=== PATIENT | female | born 1950 | race Caucasian/White ===

== ENCOUNTER → 2019-06-28 | Outpatient (CLI) | payer MEDICARE ==
--- NOTE | 2019-06-29 11:48 | XR ---
EXAMINATION TYPE: XR chest 2V DATE OF EXAM: 06/28/2019 COMPARISON: 12/28/2015 HISTORY: Cough and shortness of breath TECHNIQUE: Frontal and lateral views of the chest are obtained. FINDINGS: There is new slight right hemidiaphragm elevation in comparison to the prior. There is no f ocal air space opacity, pleural effusion, or pneumothorax seen. The cardiac silhouette size is withi n normal limits. The osseous structures are intact. Cholecystectomy clips are noted. Minimal degene rative changes of the spine. Mild diffuse osseous demineralization. IMPRESSION: New slight right hemidiaphragm elevation could be physiologic or could relate to diaphra gmatic paresis in the appropriate clinical setting. Sniff test could be performed if there is further clinical concern.
== END | disposition home or self-care (01) ==
LOC: RADXRYALE 16:21
PROVIDERS: ATTEND Physician Assistant Medical
DX: J98.6 Disorders of diaphragm (principal); R05 Cough
CPT/HCPCS: 71046

== ENCOUNTER → 2019-12-10 | Outpatient (CLI) | payer MEDICARE ==
[2019-12-10 13:32] LABS: HCT 42.9 % (34.0-46.0); HGB 13.9 gm/dL (11.4-16.0); MCHC 32.5 g/dL (31.0-37.0); MCV 86.2 fL (80.0-100.0); Mean Platelet Volume 8.7; Platelet Count 318 k/uL (150-450); RBC 4.98 m/uL (3.80-5.40); RDW 14.8 % (11.5-15.5)
[2019-12-10 20:10] LABS: African American GFR (CKD) 75.1 (60.0-200.0); Albumin 4.3 g/dL (3.80-4.90); Albumin/Globulin Ratio 1.79 (1.60-3.17); Anion Gap 11.1 mmol/L (4.00-12.00); BUN/Creat Ratio 22.22 Ratio (12.00-20.00); Calcium 9.6 mg/dL (8.7-10.3); Carbon Dioxide 24.9 mmol/L (21.6-31.8); Chol/HDL Ratio 4.67; Globulin 2.4 g/dL (1.6-3.3); LDL Cholesterol,Calculated 145.6 mg/dL (0.0-131.0); Non-African American GFR(CKD) 64.8 (60.0-200.0); Potassium 4.3 mmol/L (3.5-5.5); Total Bilirubin 0.6 mg/dL (0.2-1.2); Total Protein 6.7 g/dL (6.2-8.2); VLDL Calculation 30.4 mg/dL (5.00-40.00)
== END | disposition home or self-care (01) ==
LOC: LABWHC1 12:04
PROVIDERS: ATTEND Physician Assistant Medical
DX: I10 Essential (primary) hypertension (principal); E55.9 Vitamin D deficiency, unspecified; E78.2 Mixed hyperlipidemia; R73.01 Impaired fasting glucose; J44.9 Chronic obstructive pulmonary disease, unspecified
CPT/HCPCS: 36415; 80053; 80061; 82306; 82550; 84443; 85027

== ENCOUNTER 2021-07-16 00:08 | Observation (INO) | payer MEDICARE ==
[2021-07-16 00:16] VITALS: TEMP 99.2
[2021-07-16] MEDS ORDERED: SODIUM CHLORIDE 0.9% 500 ML 500 ML IV STA (00:21)
[2021-07-16] MEDS ORDERED: SODIUM CHLORIDE 0.9% 1,000 ML IV STA (00:21)
--- NOTE | 2021-07-16 00:23 | ED ---
Weakness HPI - General Chief complaint: Weakness Stated complaint: weakness Time Seen by Provider: 07/16/21 00:09 Source: patient, EMS, RN notes reviewed, old records reviewed Mode of arrival: EMS Limitations: no limitations - History of Present Illness Initial comments: This is a 71-year-old female to the emergency department for evaluation of weakness patient states his been feeling sick on and off for 3 months complaining of ear pain and headache. No fevers or travel history or sick contacts no trauma. He states that time she has had some dehydration decreased appetite and may have some dysuria, no recent travel history or sick contacts. Patient states his does not feel well MD Complaint: generalized weakness -: month(s) Location: generalized Severity: moderate Severity scale (1-10): 4 Quality: aching Consistency: constant Improves with: none Worsens with: none Context: recent illness Associated Symptoms: denies other symptoms - Related Data Home Medications Medication Instructions Recorded Confirmed Docusate [Colace] 100 mg PO BID 12/26/15 01/07/16 Azithromycin [Zithromax Z-pack] 250 mg PO DIRECTED 01/07/16 01/07/16 Previous Rx's Medication Instructions Recorded Aspirin EC [Ecotrin] 325 mg PO DAILY 30 Days tablet. 10/31/14 Cyclobenzaprine [Flexeril] 10 mg PO TID PRN 30 Days tab 10/31/14 Metoprolol Tartrate [Lopressor] 25 mg PO BID 30 Days tab 10/31/14 Zolpidem [Ambien] 10 mg PO HS #30 tablet 10/31/14 Albuterol Sulfate [Proventil Hfa] 1 - 2 puff INHALATION Q6HR PRN #1 01/01/16 inhaler Budesonide-Formot 160-4.5 Mcg 2 puff INHALATION RT-BID #1 puff 01/01/16 [Symbicort 160-4.5 Mcg Inhaler] PARoxetine [Paxil] 30 mg PO DAILY tab 01/01/16 predniSONE 10 mg PO DIRECTED #18 tab 01/01/16 Allergies Allergy/AdvReac Type Severity Reaction Status Date / Time bupropion HCl Allergy Unknown Verified 07/16/21 00:27 [From Wellbutrin] codeine Allergy Unknown Verified 07/16/21 00:27 metformin Allergy Unknown Verified 07/16/21 00:27 Review of Systems ROS Statement: Those systems with pertinent positive or pertinent negative responses have been documented in the HPI. ROS Other: All systems not noted in ROS Statement are negative. Past Medical History Past Medical History: Asthma, COPD, Hypertension Additional Past Medical History / Comment(s): Hx TB age 5 History of Any Multi-Drug Resistant Organisms: None Reported Past Surgical History: Cholecystectomy, Hysterectomy, Joint Replacement Additional Past Surgical History / Comment(s): bilateral ears, Bilat knee replacement, dental sx Past Anesthesia/Blood Transfusion Reactions: No Reported Reaction Past Psychological History: Anxiety, Depression Smoking Status: Never smoker Past Alcohol Use History: Occasional Past Drug Use History: None Reported - Past Family History Mother Family Medical History: Cancer Additional Family Medical History / Comment(s): headaches Father Family Medical History: Liver Disease General Exam General appearance: alert, in no apparent distress Head exam: Present: atraumatic, normocephalic, normal inspection Eye exam: Present: normal appearance, PERRL, EOMI. Absent: scleral icterus, conjunctival injection, periorbital swelling ENT exam: Present: normal exam, mucous membranes moist Neck exam: Present: normal inspection. Absent: tenderness, meningismus, lymphadenopathy Respiratory exam: Present: normal lung sounds bilaterally. Absent: respiratory distress, wheezes, rales, rhonchi, stridor Cardiovascular Exam: Present: regular rate, normal rhythm, normal heart sounds. Absent: systolic murmur, diastolic murmur, rubs, gallop, clicks GI/Abdominal exam: Present: soft, normal bowel sounds. Absent: distended, tenderness, guarding, rebound, rigid Extremities exam: Present: normal inspection, full ROM, normal capillary refill. Absent: tenderness, pedal edema, joint swelling, calf tenderness Back exam: Present: normal inspection Neurological exam: Present: alert, oriented X3, CN II-XII intact Psychiatric exam: Present: normal affect, normal mood Skin exam: Present: warm, dry, intact, normal color. Absent: rash Course Vital Signs 07/16/21 00:09 Temperature 99.2 F Pulse Rate 88 Respiratory 20 Rate Blood Pressure 138/81 O2 Sat by Pulse 96 Oximetry - Reevaluation(s) Reevaluation #1: 07/16/21 00:22 Medical records reviewed Reevaluation #2: 07/16/21 02:26 Patient is complaining of persistent ear pain and headache Reevaluation #3: 07/16/21 02:26 Patient is informed of results and questions answered Reevaluation #4: 07/16/21 02:26 Patient currently has adequate pain control - Consultations Consultation #1: Spoke with sound who agrees to admit the patient EKG Findings - EKG Comments: EKG Findings:: EKG shwos nsr 77 NE 164 QRS 84 QTc 420 Medical Decision Making - Medical Decision Making 89 female DF for evaluation patient is safe evaluation of not feeling well w eakness headache. Headache is resolved here in the ER. Patient does have urinary tract infection with elevated white blood cell count, patient will be admitted for hydration and IV antibiotics pain control - Lab Data Result diagrams: 07/16/21 00:34 07/16/21 00:34 Lab Results 07/16/21 07/16/21 07/16/21 Range/Units 00:34 00:34 00:34 WBC 14.8 H (3.8-10.6) k/uL RBC 4.49 (3.80-5.40) m/uL Hgb 12.9 (11.4-16.0) gm/dL Hct 39.9 (34.0-46.0) % MCV 88.9 (80.0-100.0) fL MCH 28.7 (25.0-35.0) pg MCHC 32.3 (31.0-37.0) g/dL RDW 13.1 (11.5-15.5) % Plt Count 356 (150-450) k/uL MPV 8.7 Neutrophils % 74 % Lymphocytes % 15 % Monocytes % 6 % Eosinophils % 3 % Basophils % 0 % Neutrophils # 10.9 H (1.3-7.7) k/uL Lymphocytes # 2.1 (1.0-4.8) k/uL Monocytes # 0.9 (0-1.0) k/uL Eosinophils # 0.5 (0-0.7) k/uL Basophils # 0.1 (0-0.2) k/uL PT 11.0 (9.0-12.0) sec INR 1.0 (<1.2) APTT 23.6 (22.0-30.0) sec Sodium (137-145) mmol/L Potassium (3.5-5.1) mmol/L Chloride (98-107) mmol/L Carbon Dioxide (22-30) mmol/L Anion Gap mmol/L BUN (7-17) mg/dL Creatinine (0.52-1.04) mg/dL Est GFR (CKD-EPI)AfAm (>60 ml/min/1.73 sqM) Est GFR (CKD-EPI)NonAf (>60 ml/min/1.73 sqM) Glucose (74-99) mg/dL Plasma Lactic Acid Juan (0.7-2.0) mmol/L Calcium (8.4-10.2) mg/dL Phosphorus (2.5-4.5) mg/dL Magnesium (1.6-2.3) mg/dL Total Bilirubin (0.2-1.3) mg/dL AST (14-36) U/L ALT (4-34) U/L Alkaline Phosphatase (38-126) U/L Troponin I (0.000-0.034) ng/mL NT-Pro-B Natriuret Pep pg/mL Total Protein (6.3-8.2) g/dL Albumin (3.5-5.0) g/dL TSH (0.465-4.680) mIU/L Urine Color Yellow Urine Appearance Clear (Clear) Urine pH 5.5 (5.0-8.0) Ur Specific [place] 1.024 (1.001-1.035) Urine Protein Trace H (Negative) Urine Glucose (UA) Negative (Negative) Urine Ketones Negative (Negative) Urine Blood Negative (Negative) Urine Nitrite Negative (Negative) Urine Bilirubin Negative (Negative) Urine Urobilinogen 2.0 (<2.0) mg/dL Ur Leukocyte Esterase Moderate H (Negative) Urine RBC 1 (0-5) /hpf Urine WBC 14 H (0-5) /hpf Ur Squamous Epith Cells 5 H (0-4) /hpf Urine Mucus Rare H (None) /hpf 07/16/21 07/16/21 07/16/21 Range/Units 00:34 00:34 00:34 WBC (3.8-10.6) k/uL RBC (3.80-5.40) m/uL Hgb (11.4-16.0) gm/dL Hct (34.0-46.0) % MCV (80.0-100.0) fL MCH (25.0-35.0) pg MCHC (31.0-37.0) g/dL RDW (11.5-15.5) % Plt Count (150-450) k/uL MPV Neutrophils % % Lymphocytes % % Monocytes % % Eosinophils % % Basophils % % Neutrophils # (1.3-7.7) k/uL Lymphocytes # (1.0-4.8) k/uL Monocytes # (0-1.0) k/uL Eosinophils # (0-0.7) k/uL Basophils # (0-0.2) k/uL PT (9.0-12.0) sec INR (<1.2) APTT (22.0-30.0) sec Sodium 135 L (137-145) mmol/L Potassium 4.2 (3.5-5.1) mmol/L Chloride 105 (98-107) mmol/L Carbon Dioxide 22 (22-30) mmol/L Anion Gap 8 mmol/L BUN 19 H (7-17) mg/dL Creatinine 0.75 (0.52-1.04) mg/dL Est GFR (CKD-EPI)AfAm >90 (>60 ml/min/1.73 sqM) Est GFR (CKD-EPI)NonAf 80 (>60 ml/min/1.73 sqM) Glucose 124 H (74-99) mg/dL Plasma Lactic Acid Juan 1.3 (0.7-2.0) mmol/L Calcium 8.8 (8.4-10.2) mg/dL Phosphorus 2.9 (2.5-4.5) mg/dL Magnesium 1.9 (1.6-2.3) mg/dL Total Bilirubin 0.7 (0.2-1.3) mg/dL AST 18 (14-36) U/L ALT 11 (4-34) U/L Alkaline Phosphatase 141 H (38-126) U/L Troponin I <0.012 (0.000-0.034) ng/mL NT-Pro-B Natriuret Pep pg/mL Total Protein 6.6 (6.3-8.2) g/dL Albumin 3.4 L (3.5-5.0) g/dL TSH 2.450 (0.465-4.680) mIU/L Urine Color Urine Appearance (Clear) Urine pH (5.0-8.0) Ur Specific [place] (1.001-1.035) Urine Protein (Negative) Urine Glucose (UA) (Negative) Urine Ketones (Negative) Urine Blood (Negative) Urine Nitrite (Negative) Urine Bilirubin (Negative) Urine Urobilinogen (<2.0) mg/dL Ur Leukocyte Esterase (Negative) Urine RBC (0-5) /hpf Urine WBC (0-5) /hpf Ur Squamous Epith Cells (0-4) /hpf Urine Mucus (None) /hpf 07/16/21 Range/Units 00:34 WBC (3.8-10.6) k/uL RBC (3.80-5.40) m/uL Hgb (11.4-16.0) gm/dL Hct (34.0-46.0) % MCV (80.0-100.0) fL MCH (25.0-35.0) pg MCHC (31.0-37.0) g/dL RDW (11.5-15.5) % Plt Count (150-450) k/uL MPV Neutrophils % % Lymphocytes % % Monocytes % % Eosinophils % % Basophils % % Neutrophils # (1.3-7.7) k/uL Lymphocytes # (1.0-4.8) k/uL Monocytes # (0-1.0) k/uL Eosinophils # (0-0.7) k/uL Basophils # (0-0.2) k/uL PT (9.0-12.0) sec INR (<1.2) APTT (22.0-30.0) sec Sodium (137-145) mmol/L Potassium (3.5-5.1) mmol/L Chloride (98-107) mmol/L Carbon Dioxide (22-30) mmol/L Anion Gap mmol/L BUN (7-17) mg/dL Creatinine (0.52-1.04) mg/dL Est GFR (CKD-EPI)AfAm (>60 ml/min/1.73 sqM) Est GFR (CKD-EPI)NonAf (>60 ml/min/1.73 sqM) Glucose (74-99) mg/dL Plasma Lactic Acid Juan (0.7-2.0) mmol/L Calcium (8.4-10.2) mg/dL Phosphorus (2.5-4.5) mg/dL Magnesium (1.6-2.3) mg/dL Total Bilirubin (0.2-1.3) mg/dL AST (14-36) U/L ALT (4-34) U/L Alkaline Phosphatase (38-126) U/L Troponin I (0.000-0.034) ng/mL NT-Pro-B Natriuret Pep 78 pg/mL Total Protein (6.3-8.2) g/dL Albumin (3.5-5.0) g/dL TSH (0.465-4.680) mIU/L Urine Color Urine Appearance (Clear) Urine pH (5.0-8.0) Ur Specific [place] (1.001-1.035) Urine Protein (Negative) Urine Glucose (UA) (Negative) Urine Ketones (Negative) Urine Blood (Negative) Urine Nitrite (Negative) Urine Bilirubin (Negative) Urine Urobilinogen (<2.0) mg/dL Ur Leukocyte Esterase (Negative) Urine RBC (0-5) /hpf Urine WBC (0-5) /hpf Ur Squamous Epith Cells (0-4) /hpf Urine Mucus (None) /hpf - Radiology Data Radiology results: report reviewed (Chest x-ray CT IAC negative for acute disease), image reviewed Disposition Clinical Impression: Depression, Dehydration, UTI (urinary tract infection), Headache, Weakness Disposition: ADMITTED IP TO THIS [facility] Condition: Fair Is patient prescribed a controlled substance at d/c from ED?: No Referrals: Quirino Gray [Primary Care Provider] - 1-2 days
[2021-07-16 00:43] LABS: Basophils # (A) 0.1 k/uL (0-0.2); Basophils % (A) 0 %; Eosinophils # (A) 0.5 k/uL (0-0.7); Eosinophils % (A) 3 %; HCT 39.9 % (34.0-46.0); HGB 12.9 gm/dL (11.4-16.0); Lymphocytes # (A) 2.1 k/uL (1.0-4.8); Lymphocytes % (A) 15 %; MCH 28.7 pg (25.0-35.0); MCHC 32.3 g/dL (31.0-37.0); MCV 88.9 fL (80.0-100.0); Mean Platelet Volume 8.7; Monocytes # (A) 0.9 k/uL (0-1.0); Monocytes % (A) 6 %; Neutrophils # (A) 10.9 k/uL (1.3-7.7); Neutrophils % (A) 74 %; Platelet Count 356 k/uL (150-450); RBC 4.49 m/uL (3.80-5.40); RDW 13.1 % (11.5-15.5); WBC 14.8 k/uL (3.8-10.6)
[2021-07-16 00:58] LABS: Partial Thromboplastin Time 23.6 sec (22.0-30.0)
[2021-07-16 01:02] LABS: ALT 11 U/L (4-34); AST 18 U/L (14-36); African American GFR (CKD) >90 (>60 ml/min/1.73 sqM); Albumin 3.4 g/dL (3.5-5.0); Alkaline Phosphatase 141 U/L (38-126); Anion Gap 8 mmol/L; Blood Urea Nitrogen 19 mg/dL (7-17); Calcium 8.8 mg/dL (8.4-10.2); Carbon Dioxide 22 mmol/L (22-30); Chloride 105 mmol/L (98-107); Glucose 124 mg/dL (74-99); Magnesium 1.9 mg/dL (1.6-2.3); Non-African American GFR(CKD) 80 (>60 ml/min/1.73 sqM); Phosphorus 2.9 mg/dL (2.5-4.5); Potassium 4.2 mmol/L (3.5-5.1); Sodium 135 mmol/L (137-145); Total Bilirubin 0.7 mg/dL (0.2-1.3); Total Protein 6.6 g/dL (6.3-8.2)
[2021-07-16 01:04] LABS: Appearance,Urine Clear (Clear); Bilirubin,Urine Negative (Negative); Blood,Urine Negative (Negative); Color,Urine Yellow; Glucose,Urine (UA) Negative (Negative); Ketones,Urine Negative (Negative); Leukocyte Esterase,Urine Moderate (Negative); Mucus,Urine Rare /hpf; Nitrite,Urine Negative (Negative); PH, Urine 5.5 (5.0-8.0); Protein,Urine Trace (Negative); RBC,Urine 1 /hpf (0-5); Specific Gravity,Urine 1.024 (1.001-1.035); Squamous Epithelial Cell,Urine 5 /hpf (0-4); WBC,Urine 14 /hpf (0-5)
--- NOTE | 2021-07-16 01:04 | XR ---
EXAMINATION TYPE: XR chest 2V DATE OF EXAM: 07/16/2021 COMPARISON: 06/28/2019 HISTORY: Weakness TECHNIQUE: 2 views FINDINGS: Heart and mediastinum are normal. Lungs are clear. Diaphragm is normal. Bony thorax is inta ct. IMPRESSION: Normal chest. No change.
[2021-07-16] MEDS ORDERED: MORPHINE SULFATE 4 MG/ML SYRINGE IVP STA (02:06)
[2021-07-16] MEDS ORDERED: KETOROLAC 15 MG/ML 1 ML VIAL IVP STA (02:06)
[2021-07-16] MEDS ORDERED: NALOXONE 0.4 MG/ML 1 ML VIAL IV PRN (02:24)
[2021-07-16] MEDS ORDERED: ONDANSETRON 4 MG/2 ML VIAL IVP PRN (02:24)
[2021-07-16] MEDS ORDERED: MORPHINE SULFATE 4 MG/ML SYRINGE IV PRN ×2 (02:24→10:17)
[2021-07-16] MEDS: SODIUM CHLORIDE 0.9% 1,000 ML IV SCH ×2 (02:33→10:12)
--- NOTE | 2021-07-16 03:08 | CT ---
EXAMINATION TYPE: CT iac wo con DATE OF EXAM: 07/16/2021 COMPARISON: CT brain January 07, 2016 HISTORY: pain CT DLP: 269.20 mGycm Automated exposure control for dose reduction was used. Images obtained of the temporal bones without contrast. There is extensive opacification of the right mastoid air cells. The internal auditory canals appear intact. There is no evidence of cerebellopontine angle mass. External auditory canals appear normal. There is normal aeration of the epitympanic recess bilaterally. I see no focal bone destruction. Ther e is no sign of a posterior fossa mass. The fourth ventricle is midline. IMPRESSION: There is almost complete opacification of the right mastoid sinus consistent with mastoiditis and is a change compared to old exam. No evidence of otitis interna or external.
[2021-07-16] MEDS ORDERED: LEVOFLOXACIN 750MG-D5W PMX 750 MG in DEXTROSE/WATER 1 150ML.BAG IVPB STA (06:30)
--- NOTE | 2021-07-16 06:30 | ED ---
Medical Decision Making - Medical Decision Making 71 Female with R ear pain and weakness, will admit for UTI, treat for Mastioditis. ENT consult - Lab Data Result diagrams: 07/16/21 00:34 07/16/21 00:34 Lab Results 07/16/21 07/16/21 07/16/21 Range/Units 00:34 00:34 00:34 WBC 14.8 H (3.8-10.6) k/uL RBC 4.49 (3.80-5.40) m/uL Hgb 12.9 (11.4-16.0) gm/dL Hct 39.9 (34.0-46.0) % MCV 88.9 (80.0-100.0) fL MCH 28.7 (25.0-35.0) pg MCHC 32.3 (31.0-37.0) g/dL RDW 13.1 (11.5-15.5) % Plt Count 356 (150-450) k/uL MPV 8.7 Neutrophils % 74 % Lymphocytes % 15 % Monocytes % 6 % Eosinophils % 3 % Basophils % 0 % Neutrophils # 10.9 H (1.3-7.7) k/uL Lymphocytes # 2.1 (1.0-4.8) k/uL Monocytes # 0.9 (0-1.0) k/uL Eosinophils # 0.5 (0-0.7) k/uL Basophils # 0.1 (0-0.2) k/uL PT 11.0 (9.0-12.0) sec INR 1.0 (<1.2) APTT 23.6 (22.0-30.0) sec Sodium (137-145) mmol/L Potassium (3.5-5.1) mmol/L Chloride (98-107) mmol/L Carbon Dioxide (22-30) mmol/L Anion Gap mmol/L BUN (7-17) mg/dL Creatinine (0.52-1.04) mg/dL Est GFR (CKD-EPI)AfAm (>60 ml/min/1.73 sqM) Est GFR (CKD-EPI)NonAf (>60 ml/min/1.73 sqM) Glucose (74-99) mg/dL Plasma Lactic Acid Juan (0.7-2.0) mmol/L Calcium (8.4-10.2) mg/dL Phosphorus (2.5-4.5) mg/dL Magnesium (1.6-2.3) mg/dL Total Bilirubin (0.2-1.3) mg/dL AST (14-36) U/L ALT (4-34) U/L Alkaline Phosphatase (38-126) U/L Troponin I (0.000-0.034) ng/mL NT-Pro-B Natriuret Pep pg/mL Total Protein (6.3-8.2) g/dL Albumin (3.5-5.0) g/dL TSH (0.465-4.680) mIU/L Urine Color Yellow Urine Appearance Clear (Clear) Urine pH 5.5 (5.0-8.0) Ur Specific [place] 1.024 (1.001-1.035) Urine Protein Trace H (Negative) Urine Glucose (UA) Negative (Negative) Urine Ketones Negative (Negative) Urine Blood Negative (Negative) Urine Nitrite Negative (Negative) Urine Bilirubin Negative (Negative) Urine Urobilinogen 2.0 (<2.0) mg/dL Ur Leukocyte Esterase Moderate H (Negative) Urine RBC 1 (0-5) /hpf Urine WBC 14 H (0-5) /hpf Ur Squamous Epith Cells 5 H (0-4) /hpf Urine Mucus Rare H (None) /hpf 07/16/21 07/16/21 07/16/21 Range/Units 00:34 00:34 00:34 WBC (3.8-10.6) k/uL RBC (3.80-5.40) m/uL Hgb (11.4-16.0) gm/dL Hct (34.0-46.0) % MCV (80.0-100.0) fL MCH (25.0-35.0) pg MCHC (31.0-37.0) g/dL RDW (11.5-15.5) % Plt Count (150-450) k/uL MPV Neutrophils % % Lymphocytes % % Monocytes % % Eosinophils % % Basophils % % Neutrophils # (1.3-7.7) k/uL Lymphocytes # (1.0-4.8) k/uL Monocytes # (0-1.0) k/uL Eosinophils # (0-0.7) k/uL Basophils # (0-0.2) k/uL PT (9.0-12.0) sec INR (<1.2) APTT (22.0-30.0) sec Sodium 135 L (137-145) mmol/L Potassium 4.2 (3.5-5.1) mmol/L Chloride 105 (98-107) mmol/L Carbon Dioxide 22 (22-30) mmol/L Anion Gap 8 mmol/L BUN 19 H (7-17) mg/dL Creatinine 0.75 (0.52-1.04) mg/dL Est GFR (CKD-EPI)AfAm >90 (>60 ml/min/1.73 sqM) Est GFR (CKD-EPI)NonAf 80 (>60 ml/min/1.73 sqM) Glucose 124 H (74-99) mg/dL Plasma Lactic Acid Juan 1.3 (0.7-2.0) mmol/L Calcium 8.8 (8.4-10.2) mg/dL Phosphorus 2.9 (2.5-4.5) mg/dL Magnesium 1.9 (1.6-2.3) mg/dL Total Bilirubin 0.7 (0.2-1.3) mg/dL AST 18 (14-36) U/L ALT 11 (4-34) U/L Alkaline Phosphatase 141 H (38-126) U/L Troponin I <0.012 (0.000-0.034) ng/mL NT-Pro-B Natriuret Pep pg/mL Total Protein 6.6 (6.3-8.2) g/dL Albumin 3.4 L (3.5-5.0) g/dL TSH 2.450 (0.465-4.680) mIU/L Urine Color Urine Appearance (Clear) Urine pH (5.0-8.0) Ur Specific [place] (1.001-1.035) Urine Protein (Negative) Urine Glucose (UA) (Negative) Urine Ketones (Negative) Urine Blood (Negative) Urine Nitrite (Negative) Urine Bilirubin (Negative) Urine Urobilinogen (<2.0) mg/dL Ur Leukocyte Esterase (Negative) Urine RBC (0-5) /hpf Urine WBC (0-5) /hpf Ur Squamous Epith Cells (0-4) /hpf Urine Mucus (None) /hpf 07/16/21 Range/Units 00:34 WBC (3.8-10.6) k/uL RBC (3.80-5.40) m/uL Hgb (11.4-16.0) gm/dL Hct (34.0-46.0) % MCV (80.0-100.0) fL MCH (25.0-35.0) pg MCHC (31.0-37.0) g/dL RDW (11.5-15.5) % Plt Count (150-450) k/uL MPV Neutrophils % % Lymphocytes % % Monocytes % % Eosinophils % % Basophils % % Neutrophils # (1.3-7.7) k/uL Lymphocytes # (1.0-4.8) k/uL Monocytes # (0-1.0) k/uL Eosinophils # (0-0.7) k/uL Basophils # (0-0.2) k/uL PT (9.0-12.0) sec INR (<1.2) APTT (22.0-30.0) sec Sodium (137-145) mmol/L Potassium (3.5-5.1) mmol/L Chloride (98-107) mmol/L Carbon Dioxide (22-30) mmol/L Anion Gap mmol/L BUN (7-17) mg/dL Creatinine (0.52-1.04) mg/dL Est GFR (CKD-EPI)AfAm (>60 ml/min/1.73 sqM) Est GFR (CKD-EPI)NonAf (>60 ml/min/1.73 sqM) Glucose (74-99) mg/dL Plasma Lactic Acid Juan (0.7-2.0) mmol/L Calcium (8.4-10.2) mg/dL Phosphorus (2.5-4.5) mg/dL Magnesium (1.6-2.3) mg/dL Total Bilirubin (0.2-1.3) mg/dL AST (14-36) U/L ALT (4-34) U/L Alkaline Phosphatase (38-126) U/L Troponin I (0.000-0.034) ng/mL NT-Pro-B Natriuret Pep 78 pg/mL Total Protein (6.3-8.2) g/dL Albumin (3.5-5.0) g/dL TSH (0.465-4.680) mIU/L Urine Color Urine Appearance (Clear) Urine pH (5.0-8.0) Ur Specific [place] (1.001-1.035) Urine Protein (Negative) Urine Glucose (UA) (Negative) Urine Ketones (Negative) Urine Blood (Negative) Urine Nitrite (Negative) Urine Bilirubin (Negative) Urine Urobilinogen (<2.0) mg/dL Ur Leukocyte Esterase (Negative) Urine RBC (0-5) /hpf Urine WBC (0-5) /hpf Ur Squamous Epith Cells (0-4) /hpf Urine Mucus (None) /hpf Disposition Clinical Impression: Depression, Dehydration, UTI (urinary tract infection), Headache, Weakness, Mastoiditis Disposition: ADMITTED IP TO THIS HOSP Condition: Fair Is patient prescribed a controlled substance at d/c from ED?: No
[2021-07-16] MEDS ORDERED: PIPERACILLIN-TAZOBACTAM 3.375 GM in SODIUM CHLORIDE 0.9% 100 ML IVPB STA (06:31)
[2021-07-16 10:11] VITALS: RESP 18
[2021-07-16] MEDS ORDERED: LORATADINE 10 MG TAB PO PRN (10:17)
[2021-07-16] MEDS ORDERED: NAPROXEN 250 MG TAB PO PRN (10:17)
[2021-07-16] MEDS ORDERED: traMADol 50 MG TAB PO PRN (10:19)
--- NOTE | 2021-07-16 13:07 | P.HPIM ---
History of Present Illness H&P Date: 07/16/21 This is a 71-year-old female with past medical history noted below that presented to the emergency room with worsening dizziness and right ear ache. Patient did leave and she has been having ear infection for the past 3 months. Intermittently she has been having pain in her right ear as well as some drainage. She said that she was not seen by any doctors for prescribed any antibiotic. She came in today to the ER after having an episode of severe dizziness was evaluated in the ER and a computed tomography scan showed evidence of mastoiditis with complete opacification of the right mastoid sinus but no evidence of otitis interna or externa. Patient was started on antibiotic with IV Levaquin awaiting ENT evaluation. She'll be placed on observation. Review of Systems Review of system: 14 points review of systems were obtained and were negative except to what were mentioned in the HPI. Past Medical History Past Medical History: Asthma, COPD, Hypertension Additional Past Medical History / Comment(s): Hx TB age 5 History of Any Multi-Drug Resistant Organisms: None Reported Past Surgical History: Cholecystectomy, Hysterectomy, Joint Replacement Additional Past Surgical History / Comment(s): bilateral ears, Bilat knee replacement, dental sx Past Anesthesia/Blood Transfusion Reactions: No Reported Reaction Past Psychological History: Anxiety, Depression Smoking Status: Never smoker Past Alcohol Use History: Occasional Past Drug Use History: None Reported - Past Family History Mother Family Medical History: Cancer Additional Family Medical History / Comment(s): headaches Father Family Medical History: Liver Disease Medications and Allergies Home Medications Medication Instructions Recorded Confirmed Type Cetirizine HCl [Zyrtec] 10 mg PO DAILY PRN 07/16/21 07/16/21 History Losartan Potassium [Cozaar] 50 mg PO DAILY 07/16/21 07/16/21 History Naproxen [Naprosyn] 500 mg PO Q12HR PRN 07/16/21 07/16/21 History Omeprazole [PriLOSEC] 20 mg PO DAILY 07/16/21 07/16/21 History PARoxetine HCL [Paxil] 40 mg PO DAILY 07/16/21 07/16/21 History traZODone HCL 50 mg PO HS 07/16/21 07/16/21 History Allergies Allergy/AdvReac Type Severity Reaction Status Date / Time codeine Allergy Unknown Verified 10/11/21 06:42 metformin Allergy Unknown Verified 07/16/21 06:42 bupropion HCl AdvReac hot flashes Verified 07/16/21 06:42 [From Wellbutrin] Physical Exam Vitals: Vital Signs Temp Pulse Resp BP Pulse Ox 07/16/21 10:07 79 18 144/85 97 07/16/21 05:00 74 20 135/72 97 07/16/21 02:37 92 20 133/78 98 07/16/21 00:09 99.2 F 88 20 138/81 96 Intake and Output 07/15/21 07/16/21 07/16/21 22:59 06:59 14:59 Other: Weight 104.326 kg General: The patient is awake and alert, in no distress Eye: there is normal conjunctiva bilaterally. Neck: The neck is supple, there is no JVD. Cardiovascular: Normal S1-S2, no S3-S4, no murmurs. Respiratory: Lungs clear to auscultation bilaterally Gastrointestinal: Abdomen is soft, nontender Musculoskeletal: There is no pedal edema. Neurological:. Speech is normal. Skin: Skin is warm and dry Results CBC & Chem 7: 07/16/21 00:34 07/16/21 00:34 Labs: Abnormal Lab Results - Last 24 Hours (Table) 07/16/21 07/16/21 07/16/21 Range/Units 00:34 00:34 00:34 WBC 14.8 H (3.8-10.6) k/uL Neutrophils # 10.9 H (1.3-7.7) k/uL Sodium 135 L (137-145) mmol/L BUN 19 H (7-17) mg/dL Glucose 124 H (74-99) mg/dL Alkaline Phosphatase 141 H (38-126) U/L Albumin 3.4 L (3.5-5.0) g/dL Urine Protein Trace H (Negative) Ur Leukocyte Esterase Moderate H (Negative) Urine WBC 14 H (0-5) /hpf Ur Squamous Epith Cells 5 H (0-4) /hpf Urine Mucus Rare H (None) /hpf Microbiology - Last 24 Hours (Table) 07/16/21 00:34 Urine Culture - Preliminary Urine,Voided Assessment and Plan Assessment: 1. Suspected mastoiditis awaiting ENT evaluation. Computed tomography scan reviewed. Continue antibiotic with Levaquin 2. Symptomatic pyuria, urine sample was not clean catch. UTI ruled out 3. Chronic medical problems, underlying depression, hypertension, continue home medication
[2021-07-16 15:58] VITALS: BP 140/72; PULSE 85
[2021-07-16] MEDS ORDERED: PIPERACILLIN-TAZOBACTAM 3.375 GM in SODIUM CHLORIDE 0.9% 100 ML IVPB SCH (16:00)
--- NOTE | 2021-07-16 18:42 | P.GSCN ---
History of Present Illness Consult date: 07/16/21 Reason for Consult: Right ear pain Requesting physician: Quirino Gray History of present illness: This is a 71-year-old white female who has had 3 months of persistent right- sided ear pain. She presented to the emergency room where CAT scan was performed demonstrating opacified right mastoid sinus. He tells me that while she's been on the antibiotic ear at the hospital she is markedly improved and that the pain is 90% better with current antibiotic therapy. She is requesting discharge. She tells me that her hearing is diminished in the right ear and has been diminished for many months. She denies any dizziness. Denies any tinnitus. Denies any neurologic issues. Denies any left-sided ear symptoms. Again her current symptoms are right ear pain which is now markedly improved along with hearing loss. Left ear hearing is normal. Review of Systems - Constitutional Reports as per HPI - EENT Ears, nose, mouth and throat: Reports as per HPI - Cardiovascular Reports as per HPI - Respiratory Reports as per HPI - Gastrointestinal Reports as per HPI - Genitourinary Genitourinary: Reports as per HPI Menstruation: Reports as per HPI - Musculoskeletal Reports as per HPI - Integumentary Reports as per HPI - Neurological Reports as per HPI - Psychiatric Reports as per HPI - Endocrine Reports as per HPI - Hematologic/Lymphatic Reports as per HPI - Allergic/Immunologic Reports as per HPI Past Medical History Past Medical History: Asthma, COPD, Hypertension Additional Past Medical History / Comment(s): Hx TB age 5, pneumonia History of Any Multi-Drug Resistant Organisms: None Reported Past Surgical History: Cholecystectomy, Hysterectomy, Joint Replacement Additional Past Surgical History / Comment(s): bilateral ears, Bilat knee replacement, dental sx Past Anesthesia/Blood Transfusion Reactions: No Reported Reaction Smoking Status: Never smoker - Past Family History Mother Family Medical History: Cancer Additional Family Medical History / Comment(s): headaches Father Family Medical History: Liver Disease Medications and Allergies Home Medications Medication Instructions Recorded Confirmed Type Amoxic-Pot Clav 875-125Mg 1 tab PO Q12HR 1 Days #20 tab 07/16/21 Rx [Augmentin 875-125] Cetirizine HCl [Zyrtec] 10 mg PO DAILY PRN 07/16/21 07/16/21 History Losartan Potassium [Cozaar] 50 mg PO DAILY 07/16/21 07/16/21 History Naproxen [Naprosyn] 500 mg PO Q12HR PRN 07/16/21 07/16/21 History Omeprazole [PriLOSEC] 20 mg PO DAILY 07/16/21 07/16/21 History PARoxetine HCL [Paxil] 40 mg PO DAILY 07/16/21 07/16/21 History traZODone HCL 50 mg PO HS 07/16/21 07/16/21 History Allergies Allergy/AdvReac Type Severity Reaction Status Date / Time codeine Allergy Unknown Verified 07/16/21 06:42 metformin Allergy Unknown Verified 07/16/21 06:42 bupropion HCl AdvReac hot flashes Verified 07/16/21 06:42 [From Wellbutrin] Surgical - Exam Osteopathic Statement: *. No significant issues noted on an osteopathic structural exam other than those noted in the History and Physical/Consult. Vital Signs Temp Pulse Resp BP Pulse Ox 99.2 F 88 20 138/81 96 07/16/21 00:09 07/16/21 00:09 07/16/21 00:09 07/16/21 00:09 07/16/21 00:09 - General well developed, well nourished, no distress - Eyes PERRL, normal ocular movement - ENT Right tympanic membrane is retracted with fluid present. The left tympanic m embrane is unremarkable. There is mastoid tenderness postauricularly upon percussion. This is on the right side. normal pinna, normal nares, normal mucosa - Neck no masses, no bruits, trachea midline, no lymphadectomy, no venous distension - Respiratory normal expansion - Integumentary no rash, no growths - Neurologic normal coordination, normal sensation - Musculoskeletal normal gait - Psychiatric oriented to time, oriented to person, oriented to place, speech is normal, memory intact Results - Labs 07/16/21 00:34 07/16/21 00:34 Abnormal Lab Results - Last 24 Hours (Table) 07/16/21 07/16/21 07/16/21 Range/Units 00:34 00:34 00:34 WBC 14.8 H (3.8-10.6) k/uL Neutrophils # 10.9 H (1.3-7.7) k/uL Sodium 135 L (137-145) mmol/L BUN 19 H (7-17) mg/dL Glucose 124 H (74-99) mg/dL Alkaline Phosphatase 141 H (38-126) U/L Albumin 3.4 L (3.5-5.0) g/dL Urine Protein Trace H (Negative) Ur Leukocyte Esterase Moderate H (Negative) Urine WBC 14 H (0-5) /hpf Ur Squamous Epith Cells 5 H (0-4) /hpf Urine Mucus Rare H (None) /hpf Microbiology - Last 24 Hours (Table) 07/16/21 00:34 Urine Culture - Preliminary Urine,Voided Diabetes panel 07/16/21 Range/Units 00:34 Sodium 135 L (137-145) mmol/L Potassium 4.2 (3.5-5.1) mmol/L Chloride 105 (98-107) mmol/L Carbon Dioxide 22 (22-30) mmol/L BUN 19 H (7-17) mg/dL Creatinine 0.75 (0.52-1.04) mg/dL Glucose 124 H (74-99) mg/dL Calcium 8.8 (8.4-10.2) mg/dL AST 18 (14-36) U/L ALT 11 (4-34) U/L Alkaline Phosphatase 141 H (38-126) U/L Total Protein 6.6 (6.3-8.2) g/dL Albumin 3.4 L (3.5-5.0) g/dL Thyroid panel 07/16/21 Range/Units 00:34 TSH 2.450 (0.465-4.680) mIU/L Calcium panel 07/16/21 Range/Units 00:34 Calcium 8.8 (8.4-10.2) mg/dL Phosphorus 2.9 (2.5-4.5) mg/dL Albumin 3.4 L (3.5-5.0) g/dL Pituitary panel 07/16/21 Range/Units 00:34 Sodium 135 L (137-145) mmol/L Potassium 4.2 (3.5-5.1) mmol/L Chloride 105 (98-107) mmol/L Carbon Dioxide 22 (22-30) mmol/L BUN 19 H (7-17) mg/dL Creatinine 0.75 (0.52-1.04) mg/dL Glucose 124 H (74-99) mg/dL Calcium 8.8 (8.4-10.2) mg/dL TSH 2.450 (0.465-4.680) mIU/L Adrenal panel 07/16/21 Range/Units 00:34 Sodium 135 L (137-145) mmol/L Potassium 4.2 (3.5-5.1) mmol/L Chloride 105 (98-107) mmol/L Carbon Dioxide 22 (22-30) mmol/L BUN 19 H (7-17) mg/dL Creatinine 0.75 (0.52-1.04) mg/dL Glucose 124 H (74-99) mg/dL Calcium 8.8 (8.4-10.2) mg/dL Total Bilirubin 0.7 (0.2-1.3) mg/dL AST 18 (14-36) U/L ALT 11 (4-34) U/L Alkaline Phosphatase 141 H (38-126) U/L Total Protein 6.6 (6.3-8.2) g/dL Albumin 3.4 L (3.5-5.0) g/dL Assessment and Plan (1) Conductive hearing loss in right ear Current Visit: Yes Status: Acute Code(s): H90.11 - CONDCTV HEAR LOSS, UNI, RIGHT EAR, W UNRESTR HEAR CNTRA SIDE SNOMED Code(s): 0134293871 (2) Chronic serous otitis media of right ear Current Visit: Yes Status: Acute Code(s): H65.21 - CHRONIC SEROUS OTITIS MEDIA, RIGHT EAR SNOMED Code(s): 351793817 (3) Otalgia of right ear Narrative/Plan: This patient tells me that her right ear pain is markedly improved with antibiotic therapy since she's been admitted. I'm recommending continued IV antibiotics for 48-72 hours then to be followed with Augmentin. She is to follow up in the office after discharge where a right tympanostomy and tube placement would be a strong consideration if she does not respond to medical therapy. She understands that she needs to follow up in our office after discharge. I've given her my card and given my card to her daughter. Again, I think she needs further IV antibiotics for at least 48-72 hours before discharge. Again she is to follow-up in my office for possible tube placement if not improved. Current Visit: Yes Status: Acute Code(s): H92.01 - OTALGIA, RIGHT EAR SNO MED Code(s): 2509215337
[2021-07-16] MEDS ORDERED: traZODone HCL 50 MG TAB PO SCH (21:00)
[2021-07-17] MEDS ORDERED: LEVOFLOXACIN 750MG-D5W PMX 750 MG in DEXTROSE/WATER 1 150ML.BAG IVPB SCH (07:00)
[2021-07-17] MEDS ORDERED: LOSARTAN 50 MG TAB PO SCH (09:00)
[2021-07-17] MEDS ORDERED: PANTOPRAZOLE 40 MG TABLET PO SCH (09:00)
[2021-07-17] MEDS ORDERED: PARoxetine 20 MG TAB PO SCH (09:00)
--- NOTE | 2021-07-17 12:35 | P.DS ---
<Hung Delarosa - Last Filed: 07/17/21 12:31> Providers Expected date of discharge: 07/17/21 Hospital Course: THIS IS NOT A DISCHARGE SUMMARY, BUT A SUMMARY OF CARE BECAUSE PATIENT LEFT AGAINST MEDICAL ADVICE. Hospital Diagnosis: Right mastoiditis Symptomatic pyuria, urine culture negative UTI ruled out COPD Hypertension Hospital course: Patient is a 71-year-old female with a past medical history of hypertension and COPD. She presented to the emergency department on 07/16/21 with a chief complaint of worsening dizziness and right ear pain. CT head was completed showing evidence of mastoiditis with complete opacification of the right mastoid sinus with no evidence of otitis interna or externa. Patient was started on IV antibiotics with Levaquin and ENT was consulted. Patient was seen and evaluated by ENT who recommended an additional 48-72 hours of IV antibiotics prior to being discharged home on oral antibiotics. Patient reportedly declined staying in the hospital and left AGAINST MEDICAL ADVICE. Despite patient's refusal to stay in the hospital for recommended treatment, Dr. Mayo did provide patient with a prescription for Augmentin and strongly encouraged her to follow- up outpatient with his office. Patient left AGAINST MEDICAL ADVICE prior to my assessment. Plan - Discharge Summary New Discharge Prescriptions: New Amoxic-Pot Clav 875-125Mg [Augmentin 875-125] 1 tab PO Q12HR 1 Days #20 tab No Action PARoxetine HCL [Paxil] 40 mg PO DAILY Naproxen [Naprosyn] 500 mg PO Q12HR PRN PRN Reason: Pain Losartan Potassium [Cozaar] 50 mg PO DAILY Cetirizine HCl [Zyrtec] 10 mg PO DAILY PRN PRN Reason: Allergy Symptoms traZODone HCL 50 mg PO HS Omeprazole [PriLOSEC] 20 mg PO DAILY Discharge Medication List Amoxic-Pot Clav 875-125Mg [Augmentin 875-125] 1 tab PO Q12HR 1 Days #20 tab 07/16/21 [Rx] Cetirizine HCl [Zyrtec] 10 mg PO DAILY PRN 07/16/21 [History] Losartan Potassium [Cozaar] 50 mg PO DAILY 07/16/21 [History] Naproxen [Naprosyn] 500 mg PO Q12HR PRN 07/16/21 [History] Omeprazole [PriLOSEC] 20 mg PO DAILY 07/16/21 [History] PARoxetine HCL [Paxil] 40 mg PO DAILY 07/16/21 [History] traZODone HCL 50 mg PO HS 07/16/21 [History] Follow up Appointment(s)/Referral(s): Oscar Mayo DO [Doctor of Osteopathic Medicine] - 1 Week Luiz Garvey MD [STAFF PHYSICIAN] - 1 Week Quirino Gray [Primary Care Provider] - 1-2 days Activity/Diet/Wound Care/Special Instructions: Rest with head elevated [id number]. 45 at a position follow-up with Dr. Maria Esther Rodarte for possible tube placement in the office if not responsive to medical therapy. Discharge Disposition: Left Against Medical Advice <Aileen Nowak - Last Filed: 07/17/21 18:49> Providers Date of admission: 07/16/21 02:24 Attending physician: Kassi Ross MD Consults: 07/16/21 06:30 Consult Physician Routine Consulting Provider: Luiz Garvey Consult Reason/Comments: mastoiditis Do you want consulting provider notified?: Yes Primary care physician: Quirino Gray [facility] Course: I reviewed the documentation as provided by the ALBA above, who is the original author of this note. I agree with the documented assessment and plan, with the following changes: None
== END 2021-07-16 18:55 | disposition left against medical advice (07) ==
LOC: EC 00:08 → 6NMEDSUR 02:24 → 1SOBS 15:29
PROVIDERS: ADMIT Internal Medicine; ATTEND Internal Medicine
DX: H70.91 Unspecified mastoiditis, right ear (principal); J44.9 Chronic obstructive pulmonary disease, unspecified; H90.2 Conductive hearing loss, unspecified; R82.81 Pyuria; E86.0 Dehydration; I10 Essential (primary) hypertension; F32.9 Major depressive disorder, single episode, unspecified; F41.9 Anxiety disorder, unspecified; Z20.822 Contact with and (suspected) exposure to COVID-19; Z53.29 Procedure and treatment not carried out because of patient's decision for other reasons; Z79.82 Long term (current) use of aspirin; Z79.899 Other long term (current) drug therapy; Z79.51 Long term (current) use of inhaled steroids; Z88.5 Allergy status to narcotic agent; Z88.8 Allergy status to other drugs, medicaments and biological substances; Z88.6 Allergy status to analgesic agent; Z86.11 Personal history of tuberculosis; Z87.01 Personal history of pneumonia (recurrent); Z96.653 Presence of artificial knee joint, bilateral; Z90.49 Acquired absence of other specified parts of digestive tract; Z90.710 Acquired absence of both cervix and uterus; Z80.9 Family history of malignant neoplasm, unspecified; Z83.79 Family history of other diseases of the digestive system
CPT/HCPCS: 99285; 96361; 96365; 96366; 96367; 36415; 93005; 83880; 80053; 83605; 83735; 84100; 84443; 84484; 85025; 85610; 85730; 81001; 87086; 87635; 71046; 70480; G0378; J2543; J0696; J1956; J1885

== ENCOUNTER 2021-08-03 15:54 | Emergency (ER) | payer MEDICARE ==
[2021-08-03 16:12] VITALS: BP 131/80; PULSE 84; RESP 18; TEMP 98
--- NOTE | 2021-08-03 16:16 | ED ---
General Adult HPI - General Chief complaint: Extremity Injury, Lower Stated complaint: Knee pain Time Seen by Provider: 08/03/21 16:14 Source: EMS Mode of arrival: EMS Limitations: no limitations - History of Present Illness Initial comments: Shu is a 71-year-old female who presents to the emergency department today for evaluation of bilateral knee pain with right greater than left. Patient states she has been using a wheelchair for the past 3 days due to pain in her knees. She has not taken any type of pain medication including [id number] m edications. She denies any injuries. She has a distant history of bilateral total knee replacements done at this hospital she states in the 1900s. Patient denies any injuries. She denies any recent illness or fever. - Related Data Home Medications Medication Instructions Recorded Confirmed Cetirizine HCl [Zyrtec] 10 mg PO DAILY PRN 07/16/21 08/03/21 Losartan Potassium [Cozaar] 50 mg PO DAILY 07/16/21 08/03/21 Naproxen [Naprosyn] 500 mg PO Q12HR PRN 07/16/21 08/03/21 Omeprazole [PriLOSEC] 20 mg PO DAILY 07/16/21 08/03/21 PARoxetine HCL [Paxil] 40 mg PO DAILY 07/16/21 08/03/21 traZODone HCL 50 mg PO HS 07/16/21 08/03/21 Previous Rx's Medication Instructions Recorded Ibuprofen [Motrin] 600 mg PO Q6HR PRN #30 tab 08/03/21 Allergies Allergy/AdvReac Type Severity Reaction Status Date / Time codeine Allergy Unknown Verified 08/03/21 17:33 metformin Allergy Unknown Verified 08/03/21 17:33 bupropion HCl AdvReac hot flashes Verified 08/03/21 17:33 [From Wellbutrin] Review of Systems ROS Statement: Those systems with pertinent positive or pertinent negative responses have been documented in the HPI. ROS Other: All systems not noted in ROS Statement are negative. Past Medical History Past Medical History: Asthma, COPD, Hypertension Additional Past Medical History / Comment(s): Hx TB age 5, pneumonia History of Any Multi-Drug Resistant Organisms: None Reported Past Surgical History: Cholecystectomy, Hysterectomy, Joint Replacement Additional Past Surgical History / Comment(s): bilateral ears, Bilat knee replacement, dental sx Past Anesthesia/Blood Transfusion Reactions: No Reported Reaction Past Psychological History: Anxiety, Depression Smoking Status: Never smoker Past Alcohol Use History: None Reported Past Drug Use History: None Reported - Past Family History Mother Family Medical History: Cancer Additional Family Medical History / Comment(s): headaches Father Family Medical History: Liver Disease General Exam - General Exam Comments Initial Comments: Physical Exam GENERAL: Patient is well-developed and well-nourished. Patient is nontoxic and well-hydrated and is in no distress. HENT: Normocephalic, Atraumatic. EYES: PERRL, EOMI PULMONARY: Unlabored respirations. CARDIOVASCULAR: RRR Warm and well perfused extremities ABDOMEN: Non-distended SKIN: No rashes or bruising : Deferred NEUROLOGIC: Alert and oriented Normal speech Normal gait MUSCULOSKELETAL: Resists movement of hips and knees bilaterally, bilateral knee replacements, multiple scars on left knee, no erythema or effusions palpable, no obvious injury PSYCHIATRIC: No SI/HI Limitations: no limitations Course Vital Signs 08/03/21 16:00 Temperature 98 F Pulse Rate 84 Respiratory 18 Rate Blood Pressure 131/80 O2 Sat by Pulse 98 Oximetry Medical Decision Making - Medical Decision Making The patient was seen and evaluated this patient presents with 3 days of leg pain has been using her wheelchair at home though she is usually ambulatory with assistance devices. She does feel safe at home she does feel she is able to get around the house adequately she wants her pain managed. She's had no fevers no injuries. X-rays show small effusion no other acute findings. Patient's pain was managed with by mouth medications to be discharged home and advised to take anti-inflammatories and follow with primary care or orthopedics for reevaluation. Disposition Clinical Impression: Knee pain Disposition: HOME SELF-CARE Condition: Stable Instructions (If sedation given, give patient instructions): Knee Pain (ED) Additional Instructions: Follow up with your primary care doctor or [facility] for re-evaluation. Return to the ER if your pain worsens, you develop fever or any new or concerning symptoms Prescriptions: Ibuprofen [Motrin] 600 mg PO Q6HR PRN #30 tab PRN Reason: Pain Is patient prescribed a controlled substance at d/c from ED?: No Referrals: Quirino rGay [Primary Care Provider] - 1-2 days
[2021-08-03] MEDS ORDERED: HYDROcodone/APAP 5-325MG 1 EACH TAB PO STA (16:55)
--- NOTE | 2021-08-03 17:54 | XR ---
EXAMINATION TYPE: XR knee complete RT DATE OF EXAM: 08/03/2021 COMPARISON: NONE HISTORY: Knee pain TECHNIQUE: 3 views FINDINGS: There is right knee prosthesis. Components appear in anatomic position. There is probably a small knee joint effusion. There is osteopenia. IMPRESSION: No fracture seen. Mild knee joint effusion
== END 2021-08-03 18:21 | disposition home or self-care (01) ==
LOC: EC 15:54
DX: M25.462 Effusion, left knee (principal); M25.461 Effusion, right knee; J45.909 Unspecified asthma, uncomplicated; I10 Essential (primary) hypertension; F41.9 Anxiety disorder, unspecified; F32.9 Major depressive disorder, single episode, unspecified; Z88.5 Allergy status to narcotic agent; Z90.49 Acquired absence of other specified parts of digestive tract; Z96.653 Presence of artificial knee joint, bilateral
CPT/HCPCS: 99283

== ENCOUNTER 2021-12-18 12:21 | Emergency (ER) | payer MEDICARE ==
[2021-12-18 13:06] VITALS: TEMP 98
--- NOTE | 2021-12-18 13:25 | XR ---
EXAMINATION TYPE: XR wrist complete 4 views RT, XR hand complete 3 views RT DATE OF EXAM: 12/18/2021 COMPARISON: 02/04/2013 HISTORY: 72-year-old female with pain after fall FINDINGS: Wrist: Osteopenia. Some soft tissue swelling present. Is bony irregularity, possible erosive change along th e radial aspect of the scaphoid. Midcarpal compartment appears intact. Moderate degenerative change t riscaphe joint and mild at the first CMC joint. Hands: There is an impacted and angulated transverse fracture at the fifth metacarpal neck. Mild degenerati ve joint space narrowing scattered throughout the PIP and DIP joints. IMPRESSION: 1. Wrist: Possible erosive change along the radial aspect of the scaphoid bone. Correlate for any kno wn diagnosis of inflammatory arthropathy. Erosion from the presence of a chronic ganglion cyst is a p ossibility. Sequela of prior fracture of the distal scaphoid is also a consideration. Mild osteophyti c change at the base of the thumb. 2. Hand: Impacted and angulated transverse fracture fifth metacarpal neck. Mild scattered osteoarthri tic change in the fingers.
[2021-12-18] MEDS ORDERED: ONDANSETRON ODT 4 MG TAB PO STA (14:30)
[2021-12-18] MEDS ORDERED: HYDROcodone/APAP 5-325MG 1 EACH TAB PO STA (14:30)
--- NOTE | 2021-12-18 14:36 | ED ---
Fall HPI - General Chief Complaint: Fall Stated Complaint: fall, rt hand injury Time Seen by Provider: 12/18/21 14:19 Source: patient, EMS Mode of arrival: EMS Limitations: no limitations - History of Present Illness Initial Comments: This a 71-year-old female sent emergency department via EMS chief complaint of fall, right wrist pain. Patient states she tripped and fell. Patient did not have any other injuries. She complains of right pain over her fifth metacarpal region. Patient states that she has had a prior fracture of the hand. Patient has a paresthesias. Patient complaints. - Related Data Home Medications Medication Instructions Recorded Confirmed Cetirizine HCl [Zyrtec] 10 mg PO DAILY PRN 07/16/21 08/03/21 Losartan Potassium [Cozaar] 50 mg PO DAILY 07/16/21 08/03/21 Naproxen [Naprosyn] 500 mg PO Q12HR PRN 07/16/21 08/03/21 Omeprazole [PriLOSEC] 20 mg PO DAILY 07/16/21 08/03/21 PARoxetine HCL [Paxil] 40 mg PO DAILY 07/16/21 08/03/21 traZODone HCL 50 mg PO HS 07/16/21 08/03/21 Previous Rx's Medication Instructions Recorded Ibuprofen [Motrin] 600 mg PO Q6HR PRN #30 tab 08/03/21 traMADol HCl [Ultram] 50 mg PO Q6H PRN #12 tab 12/18/21 Allergies Allergy/AdvReac Type Severity Reaction Status Date / Time codeine Allergy Unknown Verified 12/18/21 13:02 metformin Allergy Unknown Verified 12/18/21 13:02 bupropion HCl AdvReac hot flashes Verified 12/18/21 13:02 [From Wellbutrin] Review of Systems ROS Statement: Those systems with pertinent positive or pertinent negative responses have been documented in the HPI. ROS Other: All systems not noted in ROS Statement are negative. Past Medical History Past Medical History: Asthma, COPD, Hypertension Additional Past Medical History / Comment(s): Hx TB age 5, pneumonia History of Any Multi-Drug Resistant Organisms: None Reported Past Surgical History: Cholecystectomy, Hysterectomy, Joint Replacement Additional Past Surgical History / Comment(s): bilateral ears, Bilat knee replacement, dental sx Past Anesthesia/Blood Transfusion Reactions: No Reported Reaction Past Psychological History: Anxiety, Depression Smoking Status: Never smoker Past Alcohol Use History: None Reported Past Drug Use History: None Reported - Past Family History Mother Family Medical History: Cancer Additional Family Medical History / Comment(s): headaches Father Family Medical History: Liver Disease General Exam Limitations: no limitations General appearance: alert, in no apparent distress Head exam: Present: atraumatic, normocephalic, normal inspection Eye exam: Present: normal appearance, PERRL, EOMI. Absent: scleral icterus, conjunctival injection, periorbital swelling Respiratory exam: Present: normal lung sounds bilaterally. Absent: respiratory distress, wheezes, rales, rhonchi, stridor Cardiovascular Exam: Present: regular rate, normal rhythm, normal heart sounds. Absent: systolic murmur, diastolic murmur, rubs, gallop, clicks Extremities exam: Present: other (Right hand there is tenderness over the fifth metacarpal region, there is mild ecchymosis noted, neurovascular intact there is no scaphoid tenderness, no tenders of the first and fourth digit no wrist tenderness no forearm tenderness) Course Vital Signs 12/18/21 13:02 Temperature 98.0 F Pulse Rate 82 Respiratory 20 Rate Blood Pressure 141/68 O2 Sat by Pulse 99 Oximetry Procedures - Orthopedic Splinting/Casting Injury #1 Side: right Upper Extremity Injury Location: short arm, hand Upper Extremity Immobilizer: ulnar gutter, synthetic pre-padded splint Medical Decision Making - Medical Decision Making X-ray shows fifth metacarpal fracture, patient does have some changes of her scaphoid she has no tenderness a related to old injury she will follow-up with orthopedics she has seen Dr. Koenig in the past. Disposition Clinical Impression: Fall, Closed displaced fracture of neck of right fifth metacarpal bone Disposition: HOME SELF-CARE Condition: Stable Instructions (If sedation given, give patient instructions): Hand Fracture (ED) Additional Instructions: Please return to the Emergency Department if symptoms worsen or any other concerns. Prescriptions: traMADol HCl [Ultram] 50 mg PO Q6H PRN #12 tab PRN Reason: Pain Is patient prescribed a controlled substance at d/c from ED?: No Referrals: None,Stated [Primary Care Provider] - 1-2 days Caity Atkins DO [Doctor of Osteopathic Medicine] - 1-2 days Time of Disposition: 14:34
[2021-12-18 15:48] VITALS: BP 124/66; PULSE 93; RESP 14
== END 2021-12-18 16:31 | disposition home or self-care (01) ==
LOC: EC 12:21
DX: S62.336A Displaced fracture of neck of fifth metacarpal bone, right hand, initial encounter for closed fracture (principal); J44.9 Chronic obstructive pulmonary disease, unspecified; I10 Essential (primary) hypertension; F41.9 Anxiety disorder, unspecified; F32.A Depression, unspecified; Z88.5 Allergy status to narcotic agent; Z88.1 Allergy status to other antibiotic agents; Z90.49 Acquired absence of other specified parts of digestive tract; Z90.710 Acquired absence of both cervix and uterus; Z96.651 Presence of right artificial knee joint; W01.0XXA Fall on same level from slipping, tripping and stumbling without subsequent striking against object, initial encounter
CPT/HCPCS: 29125; 99283

== ENCOUNTER 2023-06-26 11:47 | Emergency (ER) | payer MEDICARE ==
[2023-06-26 12:33] LABS: Basophils # (A) 0.1 k/uL (0-0.2); Basophils % (A) 1 %; Eosinophils # (A) 0.5 k/uL (0-0.7); Eosinophils % (A) 4 %; HCT 41.1 % (34.0-46.0); HGB 13.6 gm/dL (11.4-16.0); Lymphocytes # (A) 2.5 k/uL (1.0-4.8); Lymphocytes % (A) 19 %; MCH 28.6 pg (25.0-35.0); MCV 86.7 fL (80.0-100.0); Mean Platelet Volume 8.6; Monocytes # (A) 0.8 k/uL (0-1.0); Monocytes % (A) 6 %; Neutrophils # (A) 9.3 k/uL (1.3-7.7); Neutrophils % (A) 70 %; Platelet Count 403 k/uL (150-450); RBC 4.74 m/uL (3.80-5.40); RDW 13.8 % (11.5-15.5); WBC 13.4 k/uL (3.8-10.6)
--- NOTE | 2023-06-26 12:45 | XR ---
EXAMINATION TYPE: XR chest 2V DATE OF EXAM: 06/26/2023 COMPARISON: 07/16/2020 TECHNIQUE: PA and lateral views submitted. HISTORY: Chest pain FINDINGS: The lungs are clear and there is no pneumothorax, pleural effusion, or focal pneumonia. Heart size normal and no overt failure. Osseous structures demonstrate hypertrophic and degenerative changes of the spine. Diffuse osteopenia with AC joint arthropathy. Surgical clips in the abdomen. Limited inspi ration. Patient the aorta with atherosclerotic changes. IMPRESSION: 1. No acute process.
[2023-06-26 12:48] LABS: Amorphous Sediment,Urine Rare /hpf; Appearance,Urine Cloudy (Clear); Bilirubin,Urine Negative (Negative); Blood,Urine Small (Negative); Color,Urine Yellow; Glucose,Urine (UA) Negative (Negative); Ketones,Urine Negative (Negative); Leukocyte Esterase,Urine Large (Negative); Nitrite,Urine Positive (Negative); PH, Urine 6.5 (5.0-8.0); Protein,Urine 1+ (Negative); RBC,Urine 58 /hpf (0-5); Specific Gravity,Urine 1.022 (1.001-1.035); Squamous Epithelial Cell,Urine 1 /hpf (0-4); WBC,Urine >182 /hpf (0-5)
[2023-06-26 12:50] LABS: ALT 15 U/L (4-34); African American GFR (CKD) 86 (>60 ml/min/1.73 sqM); Anion Gap 9 mmol/L; Blood Urea Nitrogen 26 mg/dL (7-17); Calcium 9.5 mg/dL (8.4-10.2); Carbon Dioxide 24 mmol/L (22-30); Chloride 107 mmol/L (98-107); Glucose 152 mg/dL (74-99); Magnesium 2.1 mg/dL (1.6-2.3); Non-African American GFR(CKD) 75 (>60 ml/min/1.73 sqM); Sodium 140 mmol/L (137-145); Total Bilirubin 0.8 mg/dL (0.2-1.3)
[2023-06-26] MEDS ORDERED: cefTRIAXone IN SWFI 1,000 MG/10 ML SYRINGE IVP STA (12:50)
[2023-06-26] MEDS ORDERED: PHENAZOPYRIDINE 100 MG TAB PO STA (12:50)
[2023-06-26] MEDS ORDERED: KETOROLAC 15 MG/ML 1 ML VIAL IVP STA (12:50)
[2023-06-26 12:58] LABS: NT-Pro-B-Type Natriuretic Pept 945 pg/mL
[2023-06-26 13:00] LABS: AST 34 U/L (14-36); Albumin 4.3 g/dL (3.5-5.0); Alkaline Phosphatase 135 U/L (38-126); Potassium 5.8 mmol/L (3.5-5.1); Total Protein 8.7 g/dL (6.3-8.2)
[2023-06-26 13:14] LABS: INR 0.9 (<1.2); Partial Thromboplastin Time 22.8 sec (22.0-30.0); Prothrombin Time 9.9 sec (9.0-12.0)
[2023-06-26 13:17] VITALS: RESP 18
[2023-06-26 15:20] VITALS: BP 151/84; PULSE 88; TEMP 98.1
--- NOTE | 2023-06-26 15:30 | ED ---
General Adult HPI - General Chief complaint: Chest Pain Stated complaint: Chest Pain Time Seen by Provider: 06/26/23 12:05 Source: patient, EMS Mode of arrival: EMS Limitations: no limitations - History of Present Illness Initial comments: This is a 73-year-old female with a past medical history including hypertension presents emergency department for central chest pain. The patient stated that she try to go to her primary care physician office for a UTI but when she told him that she had chest pain, instruct her to come to the emergency department. The patient stated that the chest pain is in the center of her chest without radiation. The patient did state that is worse with palpation. The patient did report that she has fallen and landed on the chest area after hitting a counter 5 days ago. The patient stated this chest pain is been going on since that time. The patient was otherwise resting in bed comfortably without any further acute distress. - Related Data Home Medications Medication Instructions Recorded Confirmed Cetirizine HCl [Zyrtec] 10 mg PO DAILY PRN 07/16/21 08/03/21 Losartan Potassium [Cozaar] 50 mg PO DAILY 07/16/21 08/03/21 Naproxen [Naprosyn] 500 mg PO Q12HR PRN 07/16/21 08/03/21 Omeprazole [PriLOSEC] 20 mg PO DAILY 07/16/21 08/03/21 PARoxetine HCL [Paxil] 40 mg PO DAILY 07/16/21 08/03/21 traZODone HCL 50 mg PO HS 07/16/21 08/03/21 Previous Rx's Medication Instructions Recorded Ibuprofen [Motrin] 600 mg PO Q6HR PRN #30 tab 08/03/21 traMADol HCl [Ultram] 50 mg PO Q6H PRN #12 tab 12/18/21 Cephalexin [Keflex] 500 mg PO Q6HR 1 Days #20 cap 06/26/23 Allergies Allergy/AdvReac Type Severity Reaction Status Date / Time codeine Allergy Unknown Verified 12/18/21 13:02 metformin Allergy Unknown Verified 12/18/21 13:02 bupropion HCl AdvReac hot flashes Verified 12/18/21 13:02 [From Wellbutrin] Review of Systems ROS Statement: Those systems with pertinent positive or pertinent negative responses have been documented in the HPI. ROS Other: All systems not noted in ROS Statement are negative. Past Medical History Past Medical History: Asthma, COPD, Hypertension Additional Past Medical History / Comment(s): Hx TB age 5, pneumonia History of Any Multi-Drug Resistant Organisms: None Reported Past Surgical History: Cholecystectomy, Hysterectomy, Joint Replacement Additional Past Surgical History / Comment(s): bilateral ears, Bilat knee replacement, dental sx Past Anesthesia/Blood Transfusion Reactions: No Reported Reaction Past Psychological History: Anxiety, Depression Smoking Status: Never smoker Past Alcohol Use History: None Reported Past Drug Use History: None Reported - Past Family History Mother Family Medical History: Cancer Additional Family Medical History / Comment(s): headaches Father Family Medical History: Liver Disease General Exam Limitations: no limitations General appearance: alert, in no apparent distress Head exam: Present: atraumatic, normocephalic, normal inspection Eye exam: Present: normal appearance, PERRL Pupils: Present: normal accommodation ENT exam: Present: normal exam, normal oropharynx, mucous membranes moist Neck exam: Present: normal inspection, full ROM Respiratory exam: Present: normal lung sounds bilaterally, chest wall tenderness (TTP over the central chest wall) Cardiovascular Exam: Present: regular rate, normal rhythm, normal heart sounds GI/Abdominal exam: Present: soft, normal bowel sounds Extremities exam: Present: normal inspection, full ROM Back exam: Present: normal inspection, full ROM Neurological exam: Present: alert, oriented X3, CN II-XII intact Psychiatric exam: Present: normal affect, normal mood Skin exam: Present: warm, dry Course Vital Signs 06/26/23 06/26/23 06/26/23 11:51 11:59 13:14 Temperature 99.3 F Pulse Rate 88 86 Respiratory 22 14 18 Rate Blood Pressure 169/78 179/73 O2 Sat by Pulse 98 96 Oximetry 06/26/23 06/26/23 15:00 15:13 Temperature 98.1 F Pulse Rate 86 88 Respiratory 18 18 Rate Blood Pressure 151/84 O2 Sat by Pulse 98 96 Oximetry EKG Findings - EKG Comments: EKG Findings:: An EKG was obtained and was interpreted by myself showing a rate of 92, DE interval 147, QRS duration 91 and QTC of 392. This EKG showed a normal sinus rhythm with no ST segment elevation or depression noted. Medical Decision Making - Medical Decision Making Was pt. sent in by a medical professional or institution (Dr., PA, CONSTRUCTION AND MAINTENANCE INSPECTOR, urgent care, hospital, or intermediate...) When possible be specific @ -No Did you speak to anyone other than the patient for history (EMS, parent, family, police, friend...)? What history was obtained from this source @ -No Did you review nursing and triage notes (agree or disagree)? Why? @ -I reviewed and agree with nursing and triage notes Were old charts reviewed (outside hosp., previous admission, EMS record, old EKG, old radiological studies, urgent care reports/EKG's, intermediate records)? Report findings @ -No old charts were reviewed Differential Diagnosis (chest pain, altered mental status, abdominal pain women, abdominal pain men, vaginal bleeding, weakness, fever, dyspnea, syncope, headache, dizziness, GI bleed, back pain, seizure, CVA, palpatations, mental health)? @ -Chest wall muscle strain, contusion, UTI, ACS EKG interpreted by me (3pts min.). @ -As above X-rays interpreted by me (1pt min.). @ -Chest x-ray was obtained and was interpreted by myself showing no acute process. CT interpreted by me (1pt min.). @ -None done U/S interpreted by me (1pt. min.). @ -None done What testing was considered but not performed or refused? (CT, X-rays, U/S, labs)? Why? @ -None What meds were considered but not given or refused? Why? @ -None Did you discuss the management of the patient with other professionals (professionals i.e. , PA, CONSTRUCTION AND MAINTENANCE INSPECTOR, lab, RT, psych nurse, rn social work, data warehousing engineer, teacher, credit risk officer, shelter case manager)? Give summary @ -Yes, shelter case manager and rn social work in the emergency department was contacted and accepted the patient up for social resources. Was smoking cessation discussed for >3mins.? @ -No Was critical care preformed (if so, how long)? @ -No Were there social determinants of health that impacted care today? How? (Homelessness, low income, unemployed, alcoholism, drug addiction, transportation, low edu. Level, literacy, decrease access to med. care, detention, rehab)? @ -No Was there de-escalation of care discussed even if they declined (Discuss DNR or withdrawal of care, Hospice)? DNR status @ -No What co-morbidities impacted this encounter? (DM, HTN, Smoking, COPD, CAD, Cancer, CVA, ARF, Chemo, Hep., AIDS, mental health diagnosis, sleep apnea, morbid obesity)? @ -Hypertension Was patient admitted / discharged? Hospital course, mention meds given and route, prescriptions, significant lab abnormalities, going to OR and other pertinent info. @ -The patient was seen and evaluated in emergency department. Physical exam, the patient was resting in bed without any acute distress. Vital signs admission were stable. Due to the nature the patient's complaints, laboratory workup was obtained and was negative. Urinalysis did however show a significant UTI. The patient did have reproducibility of pain on palpation of the chest wall and likely had a contusion secondary to a fall there. The patient denied any other acute pain and after Toradol anabaptist, had improvement of her pain. The patient was given Rocephin in the emergency department. The patient had social issues at home and the shelter case manager did evaluate the patient and set the patient up with sons as well as social help at home. We also arranged for her prescription of Keflex to be covered and was delivered to her in the emergency department. The patient was able to discharge and told to follow-up with her primary care physician. The patient was agreeable to this and all depressions were answered. The patient was discharged home in stable condition. Undiagnosed new problem with uncertain prognosis? @ -No Drug Therapy requiring intensive monitoring for toxicity (Heparin, Nitro, Insulin, Cardizem)? @ -No Were any procedures done? @ -No Diagnosis/symptom? @ -Fall, chest wall contusion, UTI Acute, or Chronic, or Acute on Chronic? @ -Acute Uncomplicated (without systemic symptoms) or Complicated (systemic symptoms)? @ -Uncomplicated Side effects of treatment? @ -No Exacerbation, Progression, or Severe Exacerbation? @ -No Poses a threat to life or bodily function? How? (Chest pain, [place], [place], pneumonia, PE, COPD, DKA, ARF, appy, cholecystitis, CVA, Diverticulitis, Homicidal, Suicidal, threat to staff... and all critical care pts) @ -No - Lab Data Result diagrams: 06/26/23 12:24 06/26/23 12:24 Lab Results 09/21/23 09/21/23 09/21/23 Range/Units 12:24 12:24 12:24 WBC 13.4 H (3.8-10.6) k/uL RBC 4.74 (3.80-5.40) m/uL Hgb 13.6 (11.4-16.0) gm/dL Hct 41.1 (34.0-46.0) % MCV 86.7 (80.0-100.0) fL MCH 28.6 (25.0-35.0) pg MCHC 33.0 (31.0-37.0) g/dL RDW 13.8 (11.5-15.5) % Plt Count 403 (150-450) k/uL MPV 8.6 Neutrophils % 70 % Lymphocytes % 19 % Monocytes % 6 % Eosinophils % 4 % Basophils % 1 % Neutrophils # 9.3 H (1.3-7.7) k/uL Lymphocytes # 2.5 (1.0-4.8) k/uL Monocytes # 0.8 (0-1.0) k/uL Eosinophils # 0.5 (0-0.7) k/uL Basophils # 0.1 (0-0.2) k/uL PT 9.9 (9.0-12.0) sec INR 0.9 (<1.2) APTT 22.8 (22.0-30.0) sec Sodium 140 (137-145) mmol/L Potassium 5.8 H (3.5-5.1) mmol/L Chloride 107 (98-107) mmol/L Carbon Dioxide 24 (22-30) mmol/L Anion Gap 9 mmol/L BUN 26 H (7-17) mg/dL Creatinine 0.79 (0.52-1.04) mg/dL Est GFR (CKD-EPI)AfAm 86 (>60 ml/min/1.73 sqM) Est GFR (CKD-EPI)NonAf 75 (>60 ml/min/1.73 sqM) Glucose 152 H (74-99) mg/dL Calcium 9.5 (8.4-10.2) mg/dL Magnesium 2.1 (1.6-2.3) mg/dL Total Bilirubin 0.8 (0.2-1.3) mg/dL AST 34 (14-36) U/L ALT 15 (4-34) U/L Alkaline Phosphatase 135 H (38-126) U/L Troponin I (0.000-0.034) ng/mL NT-Pro-B Natriuret Pep 945 pg/mL Total Protein 8.7 H (6.3-8.2) g/dL Albumin 4.3 (3.5-5.0) g/dL Urine Color Urine Appearance (Clear) Urine pH (5.0-8.0) Ur Specific [place] (1.001-1.035) Urine Protein (Negative) Urine Glucose (UA) (Negative) Urine Ketones (Negative) Urine Blood (Negative) Urine Nitrite (Negative) Urine Bilirubin (Negative) Urine Urobilinogen (<2.0) mg/dL Ur Leukocyte Esterase (Negative) Urine RBC (0-5) /hpf Urine WBC (0-5) /hpf Ur Squamous Epith Cells (0-4) /hpf Amorphous Sediment (None) /hpf 06/26/23 06/26/23 Range/Units 12:24 12:25 WBC (3.8-10.6) k/uL RBC (3.80-5.40) m/uL Hgb (11.4-16.0) gm/dL Hct (34.0-46.0) % MCV (80.0-100.0) fL MCH (25.0-35.0) pg MCHC (31.0-37.0) g/dL RDW (11.5-15.5) % Plt Count (150-450) k/uL MPV Neutrophils % % Lymphocytes % % Monocytes % % Eosinophils % % Basophils % % Neutrophils # (1.3-7.7) k/uL Lymphocytes # (1.0-4.8) k/uL Monocytes # (0-1.0) k/uL Eosinophils # (0-0.7) k/uL Basophils # (0-0.2) k/uL PT (9.0-12.0) sec INR (<1.2) APTT (22.0-30.0) sec Sodium (137-145) mmol/L Potassium (3.5-5.1) mmol/L Chloride (98-107) mmol/L Carbon Dioxide (22-30) mmol/L Anion Gap mmol/L BUN (7-17) mg/dL Creatinine (0.52-1.04) mg/dL Est GFR (CKD-EPI)AfAm (>60 ml/min/1.73 sqM) Est GFR (CKD-EPI)NonAf (>60 ml/min/1.73 sqM) Glucose (74-99) mg/dL Calcium (8.4-10.2) mg/dL Magnesium (1.6-2.3) mg/dL Total Bilirubin (0.2-1.3) mg/dL AST (14-36) U/L ALT (4-34) U/L Alkaline Phosphatase (38-126) U/L Troponin I <0.012 (0.000-0.034) ng/mL NT-Pro-B Natriuret Pep pg/mL Total Protein (6.3-8.2) g/dL Albumin (3.5-5.0) g/dL Urine Color Yellow Urine Appearance Cloudy H (Clear) Urine pH 6.5 (5.0-8.0) Ur Specific [place] 1.022 (1.001-1.035) Urine Protein 1+ H (Negative) Urine Glucose (UA) Negative (Negative) Urine Ketones Negative (Negative) Urine Blood Small H (Negative) Urine Nitrite Positive H (Negative) Urine Bilirubin Negative (Negative) Urine Urobilinogen 3.0 (<2.0) mg/dL Ur Leukocyte Esterase Large H (Negative) Urine RBC 58 H (0-5) /hpf Urine WBC >182 H (0-5) /hpf Ur Squamous Epith Cells 1 (0-4) /hpf Amorphous Sediment Rare H (None) /hpf Disposition Clinical Impression: Chest wall contusion, UTI (urinary tract infection) Disposition: HOME SELF-CARE Instructions (If sedation given, give patient instructions): Urinary Tract Infection in Women (DC), Rib Contusion (ED) Prescriptions: Cephalexin [Keflex] 500 mg PO Q6HR 1 Days #20 cap Is patient prescribed a controlled substance at d/c from ED?: No Referrals: [facility] [NON-STAFF] - (Contact for Meals on Wheels set up.) [facility] [REFERRING] - (Contact regarding possible [employer] [place] and Medicaid) [facility], [NON-STAFF] - (Home Care will be contacting you for a visit day and time. ) Camila Whittington [Primary Care Provider] - 07/01/23 3:30 pm Forms: Community Resources, Help In The Home, Personal Electronic Heat Seal Operator Time of Disposition: 15:00
== END 2023-06-26 16:03 | disposition home or self-care (01) ==
LOC: EC 11:47
DX: S20.214A Contusion of middle front wall of thorax, initial encounter (principal); N39.0 Urinary tract infection, site not specified; I10 Essential (primary) hypertension; J44.9 Chronic obstructive pulmonary disease, unspecified; F41.9 Anxiety disorder, unspecified; F32.A Depression, unspecified; Z79.899 Other long term (current) drug therapy; Z88.8 Allergy status to other drugs, medicaments and biological substances; Z88.5 Allergy status to narcotic agent; W18.09XA Striking against other object with subsequent fall, initial encounter
CPT/HCPCS: 36415; 93005; 83880; 80053; 83735; 84484; 85025; 85610; 85730; 81001; 87086; 71046; 99285; 96374; 96375; J0696; J1885

== ENCOUNTER 2024-07-01 15:55 | Emergency (ER) | payer MEDICARE ==
[2024-07-01 16:14] VITALS: RESP 18; TEMP 97.4
--- NOTE | 2024-07-01 16:42 | ED ---
Chest Pain HPI - General Chief Complaint: Chest Pain Stated Complaint: abn labs Time Seen by Provider: 07/01/24 16:15 Source: patient, RN notes reviewed Mode of arrival: ambulatory Limitations: no limitations - History of Present Illness Initial Comments: This is a 74-year-old female who presents to the emergency department for chest pain and hypertension. Patient has a history of hypertension. States that her blood pressure is usually in the 160s. Unsure how it has been running lately as she does not check it at home. States that for the last 3 days shes had chest pain going into the left arm. Denies any history of heart attacks. She saw her PCP today and was instructed to come to the emergency department for further evaluation of her chest pain and BP. Patient does note that she did not take her blood pressure medication today. States that she has a mild headache, but it only started on the way here and she believes it was caused by the traffic. MD Complaint: chest pain - Related Data Home Medications Medication Instructions Recorded Confirmed Metoprolol Tartrate [Lopressor] 25 mg PO BID 07/01/24 07/01/24 lisinopriL [Zestril] 5 mg PO DAILY 07/01/24 07/01/24 Previous Rx's Medication Instructions Recorded cefUROXime axetiL [Ceftin] 500 mg PO BID 7 Days #14 tab 07/01/24 Allergies Allergy/AdvReac Type Severity Reaction Status Date / Time codeine Allergy Unknown Verified 07/01/24 17:23 metformin Allergy Unknown Verified 07/01/24 17:23 bupropion HCl AdvReac hot flashes Verified 07/01/24 17:23 [From Wellbutrin] Review of Systems ROS Statement: Those systems with pertinent positive or pertinent negative responses have been documented in the HPI. ROS Other: All systems not noted in ROS Statement are negative. Past Medical History Past Medical History: Asthma, COPD, Hypertension Additional Past Medical History / Comment(s): Hx TB age 5, pneumonia History of Any Multi-Drug Resistant Organisms: ESBL Date of last positivie culture/infection: 06/26/23 MDRO Source:: Urine Past Surgical History: Cholecystectomy, Hysterectomy, Joint Replacement Additional Past Surgical History / Comment(s): bilateral ears, Bilat knee repla cement, dental sx Past Anesthesia/Blood Transfusion Reactions: No Reported Reaction Past Psychological History: Anxiety, Depression Smoking Status: Never smoker Past Alcohol Use History: None Reported Past Drug Use History: None Reported - Past Family History Mother Family Medical History: Cancer Additional Family Medical History / Comment(s): headaches Father Family Medical History: Liver Disease General Exam Limitations: no limitations General appearance: alert, in no apparent distress Head exam: Present: atraumatic, normocephalic, normal inspection Eye exam: Present: normal appearance, PERRL, EOMI. Absent: scleral icterus, conjunctival injection, periorbital swelling Respiratory exam: Present: normal lung sounds bilaterally. Absent: respiratory distress, wheezes, rales, rhonchi, stridor Cardiovascular Exam: Present: regular rate, normal rhythm, normal heart sounds. Absent: systolic murmur, diastolic murmur, rubs, gallop, clicks Neurological exam: Present: alert, oriented X3, CN II-XII intact Psychiatric exam: Present: normal affect, normal mood Skin exam: Present: warm, dry, intact, normal color. Absent: rash Course Vital Signs 07/01/24 07/01/24 16:10 18:53 Temperature 97.4 F L Pulse Rate 107 H 75 Respiratory 18 18 Rate Blood Pressure 188/84 168/66 O2 Sat by Pulse 98 97 Oximetry Chest Pain MDM - MDM This is a 74 year old female who presents to the emergency department for chest pain and hypertension. Was pt. sent in by a medical professional or institution? @ -Her PCP Did you speak to anyone other than the patient for history? @ -No Did you review nursing and triage notes? @ -Yes, and I agree, it is accurate with regards to the patient's symptoms. Were old charts reviewed? @ -No Differential Diagnosis? @ -Differential Chest Pain: Stable Angina, Unstable Angina, STEMI, NSTEMI Aortic Dissection, Pneumothorax, Musculoskeletal, Esophageal Spasm GERD, Cholecystitis, Pancreatitis, Zoster, this is not meant to be an all-inclusive list. EKG interpreted by me (3pts min.)? @ -EKG interpreted by me demonstrating the following: Sinus rhythm. Ventricular rate 86 bpm, ME interval 171 ms, QRS duration 99 ms, QTc 420 ms. X-rays interpreted by me (1pt min.)? @ -Chest x-ray obtained, my interpretation identifies no localized consolidations or infiltrates. CT interpreted by me (1pt min.)? @ -Not obtained U/S interpreted by me (1pt. min.)? @ -Not obtained What testing was considered but not performed? (CT, X-rays, U/S, labs)? Why? @ -None What meds were considered but not given? Why? @ -None Did you discuss the management of the patient with other professionals? @ -No Did you reconcile home meds? @ -No Was smoking cessation discussed for >3mins.? @ -No Was critical care preformed (if so, how long)? @ -No Were there social determinants of health that impacted care today? How? (Homelessness, low income, unemployed, alcoholism, drug addiction, transportation, low edu. Level, literacy, decrease access to med. care, [facility], rehab)? @ -No Was there de-escalation of care discussed even if they declined? (Discuss DNR or withdrawal of care, Hospice)? @ -No What co-morbidities impacted this encounter? (DM, HTN, Smoking, COPD, CAD, Cancer, CVA, Hep., AIDS, mental health diagnosis, sleep apnea, morbid obesity)? @ -Asthma, COPD, HTN Was patient admitted / discharged? @ -Discharged. Lab work demonstrates leukocytosis and was otherwise unremarkable. Troponin negative. Urinalysis is consistent with infection and urine was sent for culture. Chest x-ray reveals no acute process. Her BP was in the 190s systolically in the emergency department. 20 mg of labetalol administered with improvement in blood pressure. 324 mg of aspirin administered for the chest pain. Advised the patient that while her troponin is negative, a cardiac process cannot be ruled out. Given her age, risk factors, and description of symptoms, it was strongly advised the patient be admitted to medicine overnight for serial troponins and cardiac rule out. Patient however refused and is understanding of the risks. 1 g of Rocephin administered prior to discharge and she was given a prescription for cefuroxime for the UTI. Advised that she needs to make sure she is compliant with her blood pressure medication and try checking her blood pressure at home. Otherwise advised close follow-up with her PCP and she was given strict return parameters. Case discussed with ED attending Dr. Bryson. Return precautions reviewed in depth, the patient is instructed to return to the emergency department with any new, worsening, or concerning symptoms. Patient verbalized understanding. Undiagnosed new problem with uncertain prognosis? @ -None Drug Therapy requiring intensive monitoring for toxicity (Heparin, Nitro, Insulin, Cardizem)? @ -None Were any procedures done? @ -None Diagnosis/symptom? @ -Chest pain, UTI Acute, or Chronic, or Acute on Chronic? @ -Acute Uncomplicated (without systemic symptoms) or Complicated (systemic symptoms)? @ -Uncomplicated Side effects of treatment? @ -None Exacerbation, Progression, or Severe Exacerbation] @ -Not applicable Poses a threat to life or bodily function? @ -Unlikely Disposition Clinical Impression: UTI (urinary tract infection), Chest pain, Hypertension Disposition: HOME SELF-CARE Condition: Fair Instructions (If sedation given, give patient instructions): Chest Pain (ED), Urinary Tract Infection in Women (ED) Additional Instructions: Return to the emergency department with any new, worsening, or concerning symptoms. Take the antibiotic as prescribed for 7 days. Follow up with your primary care provider in 1-2 days. Prescriptions: cefUROXime axetiL [Ceftin] 500 mg PO BID 7 Days #14 tab Is patient prescribed a controlled substance at d/c from ED?: No Referrals: Camila Whittington [Primary Care Provider] - 1-2 days Time of Disposition: 19:16
--- NOTE | 2024-07-01 17:14 | XR ---
EXAMINATION TYPE: XR chest 2V DATE OF EXAM: 07/01/2024 COMPARISON: 07/02/2023 INDICATION: Chest pain TECHNIQUE: Frontal and lateral views of the chest are obtained. FINDINGS: The heart size is normal. The pulmonary vasculature is normal. The lungs are clear. IMPRESSION: 1. No acute pulmonary process. [facility], , 07/01/2024 5:12 PM
[2024-07-01] MEDS: LABETALOL 5 MG/ML VIAL MDV IVP STA (18:05)
[2024-07-01] MEDS: ASPIRIN 81 MG PO STA (18:06)
[2024-07-01 18:25] LABS: Basophils # (A) 0.1 k/uL (0-0.2); Basophils % (A) 1 %; Eosinophils # (A) 0.4 k/uL (0-0.7); Eosinophils % (A) 3 %; HCT 38.2 % (34.0-46.0); HGB 12.5 gm/dL (11.4-16.0); Lymphocytes % (A) 24 %; MCHC 32.7 g/dL (31.0-37.0); MCV 85.6 fL (80.0-100.0); Mean Platelet Volume 8.3; Monocytes # (A) 0.7 k/uL (0-1.0); Monocytes % (A) 5 %; Neutrophils # (A) 8.4 k/uL (1.3-7.7); Neutrophils % (A) 66 %; Platelet Count 402 k/uL (150-450); RBC 4.47 m/uL (3.80-5.40); RDW 14.5 % (11.5-15.5); WBC 12.7 k/uL (3.8-10.6)
[2024-07-01 18:31] LABS: Appearance,Urine Cloudy (Clear); Bacteria,Urine Occasional /hpf; Bilirubin,Urine Negative (Negative); Blood,Urine Negative (Negative); Color,Urine Yellow; Glucose,Urine (UA) Negative (Negative); Ketones,Urine Negative (Negative); Leukocyte Esterase,Urine Large (Negative); Mucus,Urine Few /hpf; Nitrite,Urine Positive (Negative); PH, Urine 5.5 (5.0-8.0); Protein,Urine Trace (Negative); RBC,Urine 4 /hpf (0-5); Specific Gravity,Urine 1.025 (1.001-1.035); Squamous Epithelial Cell,Urine 3 /hpf (0-4); Urobilinogen,Urine <2.0 mg/dL (<2.0); WBC,Urine 40 /hpf (0-5)
[2024-07-01 18:35] LABS: ALT 11 U/L (4-34); AST 26 U/L (14-36); African American GFR (CKD) >90 (>60 ml/min/1.73 sqM); Albumin 3.8 g/dL (3.5-5.0); Alkaline Phosphatase 142 U/L (38-126); Anion Gap 6 mmol/L; Blood Urea Nitrogen 20 mg/dL (7-17); Calcium 9.2 mg/dL (8.4-10.2); Carbon Dioxide 26 mmol/L (22-30); Chloride 106 mmol/L (98-107); Glucose 126 mg/dL (74-99); Magnesium 1.7 mg/dL (1.6-2.3); Non-African American GFR(CKD) 88 (>60 ml/min/1.73 sqM); Potassium 4.6 mmol/L (3.5-5.1); Sodium 138 mmol/L (137-145); Total Bilirubin 0.6 mg/dL (0.2-1.3); Total Protein 7.2 g/dL (6.3-8.2)
[2024-07-01 18:40] LABS: Partial Thromboplastin Time 22.5 sec (22.0-30.0); Prothrombin Time 10.6 sec (10.0-12.5)
[2024-07-01 18:54] VITALS: BP 168/66; PULSE 75
[2024-07-01] MEDS: cefTRIAXone IN SWFI 1,000 MG/10 ML SYRINGE IVP STA (19:24)
== END 2024-07-01 19:43 | disposition home or self-care (01) ==
LOC: EC 15:55
CPT/HCPCS: 36415; 71046; 80053; 81001; 83735; 84484; 85025; 85610; 85730; 87077; 87086; 87186; 93005; 96374; 96375; 99285